=== PATIENT | male | born 1975 | race African-American/Black ===

== ENCOUNTER → 2019-01-10 | Day surgery (SDC) | payer BC ==
[~2019-01-10] MED LIST: FENTANYL CITRATE/PF 100MCG/2 ML INJ ONE; GLUCAGON FOR INJ 1 MG VIAL ONE; HYOSCYAMINE SULFATE 0.5 MG/ML INJ ONE; MIDAZOLAM HCL 2 MG/2 ML VIAL ONE; PROPOFOL IV EMULSION 10 MG/ML 50 ML VIAL ONE
[2019-01-10 15:20] VITALS: BP 110/67
--- NOTE | 2019-01-10 15:23 | Operative Report ---
DATE OF PROCEDURE: January 10, 2019 REFERRING PHYSICIAN: Dr. Mary Jane Ness PROCEDURE PERFORMED: Colonoscopy. INDICATIONS FOR COLONOSCOPY: Surveillance colonoscopy, personal history of colon polyps, father and maternal grandfather with colon cancer. MEDICATION: Patient was done under MAC. Please see anesthesiologist's note. PROCEDURE: With the patient in the left lateral decubitus position, the flexible fiberoptic Olympus colonoscope was inserted into the rectum with ease and advanced all the way to the cecum. It was then withdrawn slowly. Mucosa overlying the cecum, ascending, transverse, descending, sigmoid, and rectum grossly appeared to be within normal limits. The scope was then retroflexed into the distal rectum and small internal hemorrhoids were noted, none of which was actively bleeding. The scope was then straightened out. It was subsequently withdrawn. Patient tolerated the procedure well. IMPRESSION: Internal hemorrhoids, none actively bleeding. PLAN: Initiate high-fiber and low-fat diet. Initiate high-fiber supplement. Patient might benefit from a followup colonoscopy considering his strong family history in 3 years. Job#: [id number] RI cc:MARY JANE NESS MD
== END | disposition home or self-care (01) ==
LOC: OR 10:49
PROVIDERS: ATTEND Internal Medicine Gastroenterology
DX: Z12.11 Encounter for screening for malignant neoplasm of colon (principal); Z86.010 Personal history of colon polyps; Z80.0 Family history of malignant neoplasm of digestive organs; K64.8 Other hemorrhoids; R03.0 Elevated blood-pressure reading, without diagnosis of hypertension; Z68.29 Body mass index [BMI] 29.0-29.9, adult
CPT/HCPCS: 45378; 93005; J1610; J1980; J2250; J2704